=== PATIENT | male | born 1995 | race Caucasian/White ===

== ENCOUNTER 2021-02-21 08:00 | Day surgery (SDC) | payer OTHER ==
[~2021-02-21] VITALS: Ht 182.9 cm; Wt 74.8 kg
[~2021-02-21 08:00] MED LIST: LR 1,000 ML IV ONE; dexameTHASONE 4 MG/ML 1ML VIAL (J1100 PER 1MG) IV ONE
--- OUTSIDE RECORDS SUMMARY | 2021-02-21 08:03 | CCD ---
Author Author [facility] Address Unknown Phone Unavailable Support Name Relationship Address Phone [facility] Next Of Kin [address] [place] [address] Unavailable MARION BRINK Next Of Kin [id number] [facility] [address] Re-disclosure Warning The records that you are about to access may contain information from federally-assisted alcohol or drug abuse programs. If such information is present, then the following federally mandated warning applies: This information has been disclosed to you from records protected by federal confidentiality rules (42 CFR part 2). The federal rules prohibit you from making any further disclosure of this information unless further disclosure is expressly permitted by the written consent of the person to whom it pertains or as otherwise permitted by 42 CFR part 2. A general authorization for the release of medical or other information is NOT sufficient for this purpose. The Federal rules restrict any use of the information to criminally investigate or prosecute any alcohol or drug abuse patient.The records that you are about to access may contain highly sensitive health information, the redisclosure of which is protected by Article 27-F of the [facility] Public Health law. If you continue you may have access to information: Regarding HIV / AIDS; Provided by facilities licensed or operated by the [facility] Office of Mental Health; or Provided by the [facility] Office for People With Developmental Disabilities. If such information is present, then the following [facility] mandated warning applies: This information has been disclosed to you from confidential records which are protected by state law. State law prohibits you from making any further disclosure of this information without the specific written consent of the person to whom it pertains, or as otherwise permitted by law. Any unauthorized further disclosure in violation of state law may result in a fine or snf sentence or both. A general authorization for the release of medical or other information is NOT sufficient authorization for further disc losure. Immunizations Vaccine Date Status Description Data Source(s) COVID-19 VACCINE Pfizer 06/23/2020 12:00:00 AM EDT completed [facility] Vaccine Series Complete: NOThis Data was Submitted to [facility]. Medications No Information Insurance Providers Payer name Policy type / Coverage type Policy ID Covered green party ID Covered green party's relationship to ward Policy Ward Plan Information [facility] [employer] [employer] [id number] Problems, Conditions, and Diagnoses No Information Surgeries/Procedures No Information Results ID Date Data Source [id number] 02/16/2021 10:33:00 AM EST [facility] Name Value Range Interpretation Code Description Data Love rce(s) Supporting Document(s) SARS coronavirus 2 RNA Not Detected [facility] [place] This lab was ordered by [facility] and reported by [facility]. Procedure Social History No Information Vital Signs ID Date Data Source UNK Name Value Range Interpretation Code Description Data Source(s) Body height 72 [in_i] 72 [in_i] [facility] ([facility], ) 6'0" Body weight 170.00 [lb_av] 170.00 [lb_av] [facility] ([facility], ) Body mass index (BMI) [Ratio] 23.1 kg/m2 23.1 k g/m2 [facility] ([facility]) [place] body weight 178 [lb_av] 178 [lb_av] [facility] ([facility]) Body weight 77.112 kg 77.112 kg [facility] ([facility]) Body surface area Derived from formula 1.99 m2 1.99 m2 [facility] ([facility])
--- OUTSIDE RECORDS SUMMARY | 2021-02-21 08:03 | CCD | Continuity of Care Document ---
Author Author Nabil ROBERTS MD Organization Unknown Address [address] [address] Phone [phone] Care Team Providers Care Batt Packer Name Role Phone AUTM Jesse Sifuentes Krys Marc AUTM [phone] Problems Description No Information Available Social History Type Date Description Comments Sex Unknown Smokeless Tobacco Never Used Smokeless Tobacco ETOH Use 2-3 A Week Tobacco Use Start: Unknown End: Unknown Patient is a former smoker Recreational Drug Use Never Used Drugs Allergies and adverse reactions Description No Known Drug Allergies Medications Description No Active Medications Immunizations Description No Information Available Vital Signs Date Vital Result Comment 01/22/2021 8:40am Height 72 inches 6'0" Weight 170.00 lb BMI (Body Mass Index) 23.1 kg/m2 [place] Body Weight 178 lb Weight 77.112 kg BSA (Body Surface Area) 1.99 m2 Results Description No Information Available Procedures Description No Information Available Medical Devices Description No Information Available Encounters Description No Information Available Assessments Date Code Description Provider 01/22/2021 J34.2 Deviated nasal septum Paul saldaña MD Plan of Treatment 01/22/2021 - Paul Roberts MD* J34.2 Deviated nasal septum* Comments:* Management options for deviated nasal septum include observation versus septoplasty. Risks of procedure include, but not limited to, bleeding, infection, GA risks, septal perforation, persistence of deviation, smell disturbance, CSF leak, meningitis, and need for revision surgery. The patient understands and wishes to proceed. * All * New Medication:* No Active Medications - Functional Status Description No Information Available Mental Status Description No Information Available Referrals Refer to Dr Reason for Referral Status Appt Date Paul Roberts MD DEVIATED NASAL SEPTUM Scheduled 01/22/[address] [address] [phone]
[2021-02-21] MEDS ORDERED: LIDOCAINE 2% 100MG/5ML SDV (FOR ANES.) As Ordered ONE (11:33)
[2021-02-21] MEDS ORDERED: propofoL 200 MG/20 ML VIAL As Ordered ONE (11:33)
[2021-02-21] MEDS ORDERED: MIDAZOLAM INJ 2MG/2ML VIAL (J2250 PER 1MG) As Ordered ONE (11:33)
[2021-02-21] MEDS ORDERED: fentaNYL 100 MCG/2 ML INJECTION (J3010) As Ordered ONE ×2 (11:33→13:03)
[2021-02-21] MEDS ORDERED: ONDANSETRON 4MG/2ML VIAL As Ordered ONE (11:34)
[2021-02-21] MEDS ORDERED: dexameTHASONE 4 MG/ML 1ML VIAL (J1100 PER 1MG) As Ordered ONE ×2 (11:34→12:29)
[2021-02-21] MEDS ORDERED: EPINEPHrine 1MG/ML INJ 30ML MD-VIAL As Ordered ONE (11:47)
[2021-02-21] MEDS ORDERED: METHYLENE BLUE 0.5% (5MG/ML) 10 ML AMP (PROVAYBLUE) As Ordered ONE (11:47)
[2021-02-21] MEDS ORDERED: SODIUM CHLORIDE 0.9% NASAL GEL 15GM (AYR) As Ordered ONE (11:47)
[2021-02-21] MEDS ORDERED: LIDOCAINE W/EPINEPHRINE 1% 20ML VIAL As Ordered ONE (11:47)
[2021-02-21] MEDS ORDERED: ROCURONIUM BROMIDE 50 MG/5 ML VIAL As Ordered ONE (11:49)
[2021-02-21] MEDS ORDERED: SUGAMMADEX SODIUM 500 MG/5 ML VIAL (BRIDION) As Ordered ONE (13:02)
[2021-02-21] MEDS ORDERED: ACETAMINOPHEN 1000MG 100ML IV BTL (OFIRMEV) (J0131 PER 10MG) As Ordered ONE (13:02)
[2021-02-21] MEDS ORDERED: METOCLOPRAMIDE INJ 10MG/2ML VIAL (J2765 PER 1) As Ordered ONE (13:07)
[2021-02-21] MEDS ORDERED: ONDANSETRON 4MG/2ML VIAL IV PRN (13:45)
[2021-02-21] MEDS ORDERED: LR 1,000 ML IV SCH (13:45)
[2021-02-21] MEDS ORDERED: PERCOCET 5MG/325MG TAB PO PRN (13:45)
[2021-02-21] MEDS ORDERED: METOCLOPRAMIDE INJ 10MG/2ML VIAL (J2765 PER 1) IV PRN (13:45)
[2021-02-21] MEDS: fentaNYL 100 MCG/2 ML INJECTION (J3010) IV PRN ×3 (13:55→14:06)
[2021-02-21 14:28] VITALS: BP 129/89
--- NOTE | 2021-02-26 09:14 | RO ---
OPERATIVE NOTE DATE OF OPERATION: 02/21/2021 PREOPERATIVE DIAGNOSIS: Deviated nasal septum. POSTOPERATIVE DIAGNOSIS: Deviated nasal septum. PROCEDURE PERFORMED: Septoplasty. SURGEON: Paul Roberts M.D. BUNCH BREAKER: ANESTHESIA: General. CLINICAL PREAMBLE: This 25-year-old man presented to the office with a history of chronic nasal congestion worse in the right side of the nasal cavity. Physical examination confirmed the presence of deviated nasal septum to the right. Management options including septoplasty have been discussed. The patient understood and consented to the procedure. OR NARRATION: The patient was identified in preoperative holding and brought to the operating room in stable condition. In supine position on the operating table, the patient received general anesthesia followed by orotracheal intubation without incident. The patient was prepped and draped in the usual fashion for the procedure. Both sides of the nasal cavity were packed using pledgets soaked in 1:100,000 epinephrine. The pledgets were removed after a waiting period, and both sides of the nasal septum were infiltrated with 1% lidocaine with 1:100,000 epinephrine. A left hemitransfixion incision was made. Mucoperichondrial and mucoperiosteal flap was developed on the left side. The bony cartilaginous junction was identified and disarticulated. The deviated portion of the vomer bone and perpendicular plate were isolated and resected using a cutting Milton-Hortencia forceps. The deviated portion of the septal cartilage was isolated and resected as well. The maxillary crest was isolated and resected using chisel and mallet. At the end of the procedure, the nasal septum was returned to a midline position. The left hemitransfixion was closed. The Campbell splint was inserted into each nasal cavity and secured anteriorly using 3-0 nylon suture. At the end of the procedure, sponge and instrument counts were correct. No complications were encountered. Estimated blood loss was approximately 20 ml. General anesthesia was reversed and patient was extubated and brought to recovery room in stable condition.
== END 2021-02-21 15:00 | disposition home or self-care (01) ==
LOC: M SDC 08:00
PROVIDERS: ATTEND Otolaryngology
DX: J34.2 Deviated nasal septum (principal)
CPT/HCPCS: 30520; 88300; J0131; J1100; J2250; J2405; J2765; J3010; Q9968